=== PATIENT | female | born 1945 | race African-American/Black ===

== ENCOUNTER 2017-02-12 12:15 | Inpatient (IN) ==
[2017-02-12 13:23] LABS: Basophils % 0.1 % (0.0-0.8); Hematocrit 44.5 VOL% (35.7-47.0); Hemoglobin 14.6 GM/DL (12.0-16.0); Immature Granulocytes % 0.5 %; Immature Granulocytes Absolute 0.08 #; Lymphocytes # 1.4 10*3/uL (1.4-4.0); Lymphocytes % 8.7 % (21.3-54.2); Mean Corpuscular HGB Conc 32.8 GM/DL (32-36); Mean Corpuscular Hemoglobin 32 PG (27-34); Monocytes # 1.5 10*3/uL (0.11-0.8); Monocytes % 9.5 % (1.7-12.7); Neutrophils # 12.6 10*3/uL (1.4-7.4); Neutrophils % 81.2 % (38.7-73.9); Platelet Count 183 T/CUMM (130-400); Red Blood Count 4.54 MC/CUMM (3.8-5.5); Red Cell Distribution Width 14.5 % (9.3-17.3); White Blood Count 15.5 T/CUMM (4-12)
[2017-02-12 13:31] LABS: Apearance,Urine CLOUDY (Clear); Bilirubin,Urine Negative (Negative); Blood, Urine Moderate mg/dL (Negative); Glucose,Urine (UA) >=500 mg/dL (Negative); Hyaline Casts,Urine 1 /LPF (0-3); Ketones,Urine Negative (Negative); Mucus,Urine Occasional /LPF (Occasional); Nitrite,Urine Negative (Negative); Protein,Urine 30 MG/DL; RBC,Urine 2 /HPF (0-4); Squamous Epithelial Cell,Urine Occasional /HPF (0-10); Urine Color Yellow (Yellow); Urine Specific Gravity 1.013 (1.001-1.035); Urine Urobilinogen < 2.0 EU/DL (0.2-1.0); WBC,Urine 2 /HPF (0-6)
[2017-02-12] MEDS ORDERED: PROPOFOL 1,000 MG/100 ML BOTTLE IV ONE (13:37)
[2017-02-12] MEDS: PROPOFOL 1,000 MG/100 ML BOTTLE IV SCH ×2 (13:45→21:23)
[2017-02-12 13:46] LABS: Barbiturates Screen,Urine Negative (Negative); Benzodiazepines Screen,Urine Positive (Negative); Cannabinoid Screen,Urine Positive (Negative); Opiate Screen,Urine Negative (Negative); Phencyclidine Screen,Urine Negative (Negative)
[2017-02-12 14:04] LABS: Ammonia 28 UMOL/L (11-32)
[2017-02-12 14:08] LABS: Alanine Aminotransferase 28 U/L (13-56); Albumin 3.9 G/DL (3.4-5.0); Alkaline Phosphatase 90 U/L (45-117); Aspartate Amino Transferase 36 U/L (0-37); Bilirubin,Total < 0.39 MG/DL (0.2-1.0); Blood Urea Nitrogen 14 MG/DL (7-18); Calcium 8.9 MG/DL (8.5-10.1); Glucose 53 MG/DL (74-106); Magnesium 2.3 MG/DL (1.8-2.4); Osmolality,Calculated 280.1 MOS/KG (273-304); Potassium 4.2 MMOL/L (3.5-5.1); Sodium 142 MMOL/L (136-145); Total Protein 7.4 G/DL (6.4-8.3); Troponin I Only 0.248 NG/ML (0.00-0.045)
[2017-02-12] MEDS ORDERED: DEXTROSE 50% 25 GM/50 ML SYRINGE IV ONE (14:32)
[2017-02-12 14:43] LABS: Lactic Acid 2.2 MMOL/L (0.4-2.0)
[2017-02-12] MEDS ORDERED: DEXTROSE 50% 25 GM/50 ML VIAL IV STA (14:53)
[2017-02-12] MEDS ORDERED: ONDANSETRON 4 MG/2 ML VIAL IV PRN (15:34)
[2017-02-12] MEDS ORDERED: ALBUTEROL 2.5 MG/3 ML NEB RESP TX PRN (15:34)
[2017-02-12] MEDS ORDERED: SODIUM CHLORIDE 0.9% 2,200 ML IV ONE (15:34)
[2017-02-12] MEDS ORDERED: PANTOPRAZOLE 40 MG VIAL IV ONE (15:43)
[2017-02-12] MEDS: PANTOPRAZOLE 40 MG VIAL IV SCH (15:45)
[2017-02-12] MEDS ORDERED: VANCOMYCIN 1,000 MG VIAL ONE (15:49)
[2017-02-12] MEDS: VANCOMYCIN INJ 1,000 MG in SODIUM CHLORIDE 0.9% 250 ML IV SCH (16:25)
[2017-02-12 18:34] LABS: CKMB % 0.5 %
[2017-02-12 18:35] LABS: Troponin I Only 0.439 NG/ML (0.00-0.045)
[2017-02-12] MEDS: SODIUM CHLORIDE 0.9% 1,000 ML IV SCH ×2 (19:00→22:47)
[2017-02-13 01:56] LABS: Basophils % 0.2 % (0.0-0.8); Hematocrit 36.9 VOL% (35.7-47.0); Immature Granulocytes % 0.4 %; Immature Granulocytes Absolute 0.05 #; Lymphocytes # 2.4 10*3/uL (1.4-4.0); Lymphocytes % 19.2 % (21.3-54.2); Mean Corpuscular HGB Conc 32.5 GM/DL (32-36); Mean Corpuscular Hemoglobin 32 PG (27-34); Mean Corpuscular Volume 97.4 FL (87-102); Mean Platelet Volume 10.9 FL (9.6-12.0); Monocytes # 1.3 10*3/uL (0.11-0.8); Monocytes % 10.1 % (1.7-12.7); Neutrophils # 8.7 10*3/uL (1.4-7.4); Neutrophils % 70.1 % (38.7-73.9); Platelet Count 158 T/CUMM (130-400); Red Blood Count 3.79 MC/CUMM (3.8-5.5); Red Cell Distribution Width 14.5 % (9.3-17.3); White Blood Count 12.4 T/CUMM (4-12)
[2017-02-13 02:38] LABS: Calcium 7.8 MG/DL (8.5-10.1); Osmolality,Calculated 281.1 MOS/KG (273-304); Potassium 3.9 MMOL/L (3.5-5.1)
[2017-02-13 02:41] LABS: CKMB % 0.3 %
[2017-02-13 02:52] LABS: Troponin I Only 0.279 NG/ML (0.00-0.045)
[2017-02-13] MEDS: PROPOFOL 1,000 MG/100 ML BOTTLE IV SCH ×3 (03:21→17:30)
[2017-02-13 03:43] LABS: ABG Base Excess -0.8 MMOL/L (-2.5-2.5); ABG HCO3 23.8 MMOL/L (20-26); ABG PCO2 30.4 MM HG (35-48); ABG PH 7.466 (7.35-7.45); ABG TCO2 19.1 MMOL/L (23-27); Allen Test Positive; Pt O2 Delivery Device Ventilator
[2017-02-13 04:53] LABS: INR 1.1; PT Patient Result 11.3 SECS; Partial Thromboplastin Time 29.4 SECS (0-40)
[2017-02-13] MEDS: VANCOMYCIN INJ 1,000 MG in SODIUM CHLORIDE 0.9% 250 ML IV SCH ×2 (04:53→17:04)
[2017-02-13] MEDS: SODIUM CHLORIDE 0.9% 1,000 ML IV SCH ×2 (08:43→18:38)
[2017-02-13] MEDS: PANTOPRAZOLE 40 MG VIAL IV SCH (17:03)
[2017-02-14] MEDS ORDERED: TERBUTALINE 1 MG/1 ML VIAL SUBCUT ONE (01:50)
[2017-02-14] MEDS: methylPREDNISolone SOD SUC 40 MG/1 ML VIAL IV SCH ×4 (02:00→21:08)
[2017-02-14] MEDS ORDERED: RACEPINEPHRINE 0.5 ML NEB RESP TX ONE (02:30)
[2017-02-14] MEDS ORDERED: ETOMIDATE 20 MG/10 ML VIAL IV ONE (02:34)
[2017-02-14] MEDS ORDERED: SUCCINYLCHOLINE 200 MG/10 ML VIAL ONE (02:34)
[2017-02-14 02:43] LABS: ABG Base Excess -2.6 MMOL/L (-2.5-2.5); ABG HCO3 22.3 MMOL/L (20-26); ABG Oxygen Saturation 98.6 % (95-100); ABG PCO2 39.1 MM HG (35-48); ABG PH 7.367 (7.35-7.45); ABG TCO2 19.7 MMOL/L (23-27)
[2017-02-14] MEDS ORDERED: ALBUTEROL NEB SOLN 5 MG/ML 20 ML/BOTTLE CONT NEB ONE (03:30)
[2017-02-14 05:14] LABS: Basophils % 0.1 % (0.0-0.8); Hematocrit 37.8 VOL% (35.7-47.0); Hemoglobin 12.4 GM/DL (12.0-16.0); Immature Granulocytes % 0.6 %; Immature Granulocytes Absolute 0.08 #; Lymphocytes # 0.6 10*3/uL (1.4-4.0); Lymphocytes % 4.6 % (21.3-54.2); Mean Corpuscular HGB Conc 32.8 GM/DL (32-36); Mean Corpuscular Hemoglobin 32 PG (27-34); Mean Corpuscular Volume 97.4 FL (87-102); Mean Platelet Volume 11.5 FL (9.6-12.0); Monocytes # 0.5 10*3/uL (0.11-0.8); Monocytes % 3.6 % (1.7-12.7); Neutrophils # 11.4 10*3/uL (1.4-7.4); Neutrophils % 91.1 % (38.7-73.9); Platelet Count 150 T/CUMM (130-400); Red Blood Count 3.88 MC/CUMM (3.8-5.5); Red Cell Distribution Width 14.4 % (9.3-17.3); White Blood Count 12.6 T/CUMM (4-12)
[2017-02-14 05:38] LABS: Calcium 8.5 MG/DL (8.5-10.1); Osmolality,Calculated 287.7 MOS/KG (273-304)
[2017-02-14 05:40] LABS: Band Neutrophils 1 % (0-10); Giant Platelets Few; Hypochromasia 1+; Lymphocytes 5 % (20-55); Platelet Estimate Normal; Segmented Neutrophils 93 % (50-85); Total Cells Counted 100
[2017-02-14] MEDS: SODIUM CHLORIDE 0.9% 1,000 ML IV SCH ×4 (05:40→22:38)
[2017-02-14] MEDS: VANCOMYCIN INJ 1,000 MG in SODIUM CHLORIDE 0.9% 250 ML IV SCH ×2 (05:40→17:02)
[2017-02-14 06:22] LABS: ABG Base Excess -2.7 MMOL/L (-2.5-2.5); ABG HCO3 22.1 MMOL/L (20-26); ABG Oxygen Saturation 97.1 % (95-100); ABG PCO2 37.4 MM HG (35-48); ABG PH 7.378 (7.35-7.45); ABG PO2 85.7 MM HG (80-95); ABG TCO2 19.4 MMOL/L (23-27)
[2017-02-14] MEDS ORDERED: POTASSIUM CHLORIDE RIDER 10 MEQ in PREMIX 1 EACH IV PRN (08:25)
[2017-02-14] MEDS: levETIRAcetam 500 MG TABLET PO SCH ×2 (09:46→21:08)
[2017-02-14] MEDS: POTASSIUM CHLORIDE 20 MEQ/15 ML UDCUP PER TUBE PRN ×4 (10:44→21:08)
[2017-02-14] MEDS: ALBUTEROL 1.25 MG/3 ML NEB RESP TX SCH ×3 (11:34→20:25)
[2017-02-14] MEDS: PROPOFOL 1,000 MG/100 ML BOTTLE IV SCH (15:09)
[2017-02-14] MEDS: PANTOPRAZOLE 40 MG VIAL IV SCH (17:01)
[2017-02-15] MEDS: ALBUTEROL 1.25 MG/3 ML NEB RESP TX SCH ×6 (00:37→22:05)
[2017-02-15] MEDS ORDERED: VANCOMYCIN INJ 1,000 MG in SODIUM CHLORIDE 0.9% 250 ML IV SCH (01:00)
[2017-02-15] MEDS: methylPREDNISolone SOD SUC 40 MG/1 ML VIAL IV SCH ×3 (01:14→18:27)
[2017-02-15] MEDS: SODIUM CHLORIDE 0.9% 1,000 ML IV SCH ×3 (01:28→21:13)
[2017-02-15 04:06] LABS: Basophils % 0.1 % (0.0-0.8); Hematocrit 35.3 VOL% (35.7-47.0); Hemoglobin 11.8 GM/DL (12.0-16.0); Immature Granulocytes % 0.7 %; Immature Granulocytes Absolute 0.11 #; Lymphocytes # 0.9 10*3/uL (1.4-4.0); Lymphocytes % 5.8 % (21.3-54.2); Mean Corpuscular HGB Conc 33.4 GM/DL (32-36); Mean Corpuscular Hemoglobin 32 PG (27-34); Mean Corpuscular Volume 96.4 FL (87-102); Mean Platelet Volume 11.7 FL (9.6-12.0); Monocytes # 0.6 10*3/uL (0.11-0.8); Monocytes % 3.6 % (1.7-12.7); Neutrophils % 89.8 % (38.7-73.9); Platelet Count 153 T/CUMM (130-400); Red Blood Count 3.66 MC/CUMM (3.8-5.5); Red Cell Distribution Width 14.1 % (9.3-17.3); White Blood Count 15.6 T/CUMM (4-12)
[2017-02-15 04:26] LABS: Calcium 9.1 MG/DL (8.5-10.1); Magnesium 2.1 MG/DL (1.8-2.4); Osmolality,Calculated 287.8 MOS/KG (273-304)
[2017-02-15] MEDS: levETIRAcetam 500 MG TABLET PO SCH ×2 (08:40→20:54)
[2017-02-15] MEDS: CEFEPIME 1,000 MG in SYRINGE 1 EACH IV SCH ×2 (08:41→21:12)
[2017-02-15] MEDS ORDERED: CYANOCOBALAMIN 1000 MCG/1 ML VIAL IM SCH (15:16)
[2017-02-15] MEDS ORDERED: hydroCHLOROthiazide 25 MG TABLET PO PRN (15:16)
[2017-02-15] MEDS: FERROUS SULFATE 325 MG TABLET PO SCH ×2 (16:58→20:54)
[2017-02-15] MEDS: lamoTRIgine 25 MG TABLET PO SCH ×2 (16:58→20:54)
[2017-02-15] MEDS: LINACLOTIDE 145 MCG CAPSULE PO SCH (16:59)
[2017-02-15] MEDS: ASCORBIC ACID 500 MG TABLET PO SCH (17:08)
[2017-02-15] MEDS: predniSONE 5 MG TABLET PO SCH (17:09)
[2017-02-15] MEDS: POTASSIUM CHLORIDE 10 MEQ TABLET PO SCH (17:09)
[2017-02-15] MEDS: CHOLECALCIFEROL 1,000 UNIT TABLET PO SCH (17:09)
[2017-02-16] MEDS: ALBUTEROL 1.25 MG/3 ML NEB RESP TX SCH ×6 (02:35→20:25)
[2017-02-16 03:04] LABS: Basophils % 0.1 % (0.0-0.8); Hematocrit 33.9 VOL% (35.7-47.0); Hemoglobin 11.3 GM/DL (12.0-16.0); Immature Granulocytes % 0.9 %; Immature Granulocytes Absolute 0.11 #; Lymphocytes # 2.2 10*3/uL (1.4-4.0); Lymphocytes % 17.5 % (21.3-54.2); Mean Corpuscular HGB Conc 33.3 GM/DL (32-36); Mean Corpuscular Hemoglobin 32 PG (27-34); Mean Corpuscular Volume 96.3 FL (87-102); Mean Platelet Volume 11.6 FL (9.6-12.0); Monocytes # 1.1 10*3/uL (0.11-0.8); Monocytes % 8.5 % (1.7-12.7); Neutrophils # 9.2 10*3/uL (1.4-7.4); Platelet Count 156 T/CUMM (130-400); Red Blood Count 3.52 MC/CUMM (3.8-5.5); Red Cell Distribution Width 14.2 % (9.3-17.3); White Blood Count 12.5 T/CUMM (4-12)
[2017-02-16 03:19] LABS: Albumin 2.8 G/DL (3.4-5.0); Bilirubin,Total 0.4 MG/DL (0.2-1.0); Calcium 8.7 MG/DL (8.5-10.1); Osmolality,Calculated 283.3 MOS/KG (273-304); Potassium 3.6 MMOL/L (3.5-5.1); Total Protein 5.9 G/DL (6.4-8.3)
[2017-02-16] MEDS: SODIUM CHLORIDE 0.9% 1,000 ML IV SCH (09:42)
[2017-02-16] MEDS: CHOLECALCIFEROL 1,000 UNIT TABLET PO SCH (09:43)
[2017-02-16] MEDS: levETIRAcetam 500 MG TABLET PO SCH ×2 (09:43→21:44)
[2017-02-16] MEDS: LINACLOTIDE 145 MCG CAPSULE PO SCH (09:43)
[2017-02-16] MEDS: predniSONE 5 MG TABLET PO SCH (09:44)
[2017-02-16] MEDS: CEFEPIME 1,000 MG in SYRINGE 1 EACH IV SCH ×2 (09:44→21:43)
[2017-02-16] MEDS: POTASSIUM CHLORIDE 10 MEQ TABLET PO SCH (09:44)
[2017-02-16] MEDS: ASCORBIC ACID 500 MG TABLET PO SCH (09:44)
[2017-02-16] MEDS: lamoTRIgine 25 MG TABLET PO SCH ×2 (09:44→21:43)
[2017-02-16] MEDS: FERROUS SULFATE 325 MG TABLET PO SCH ×2 (09:44→21:43)
[2017-02-17] MEDS: ALBUTEROL 1.25 MG/3 ML NEB RESP TX SCH ×4 (02:12→11:50)
[2017-02-17 04:18] LABS: Basophils % 0.1 % (0.0-0.8); Immature Granulocytes % 1.1 %; Immature Granulocytes Absolute 0.09 #; Lymphocytes # 2.5 10*3/uL (1.4-4.0); Lymphocytes % 31.3 % (21.3-54.2); Mean Corpuscular HGB Conc 34.2 GM/DL (32-36); Mean Corpuscular Hemoglobin 32 PG (27-34); Mean Corpuscular Volume 93.4 FL (87-102); Mean Platelet Volume 11.5 FL (9.6-12.0); Monocytes # 0.8 10*3/uL (0.11-0.8); Monocytes % 10.6 % (1.7-12.7); NRBC # 0.02 10*3/uL; Neutrophils # 4.5 10*3/uL (1.4-7.4); Neutrophils % 56.9 % (38.7-73.9); Platelet Count 151 T/CUMM (130-400); Red Blood Count 4.07 MC/CUMM (3.8-5.5); Red Cell Distribution Width 13.9 % (9.3-17.3); White Blood Count 7.8 T/CUMM (4-12)
[2017-02-17 04:52] LABS: Calcium 8.5 MG/DL (8.5-10.1); Osmolality,Calculated 285.8 MOS/KG (273-304); Potassium 3.4 MMOL/L (3.5-5.1)
[2017-02-17] MEDS: ASCORBIC ACID 500 MG TABLET PO SCH (09:08)
[2017-02-17] MEDS: FERROUS SULFATE 325 MG TABLET PO SCH (09:08)
[2017-02-17] MEDS: POTASSIUM CHLORIDE 10 MEQ TABLET PO SCH (09:08)
[2017-02-17] MEDS: CEFEPIME 1,000 MG in SYRINGE 1 EACH IV SCH (09:09)
[2017-02-17] MEDS: levETIRAcetam 500 MG TABLET PO SCH (09:09)
[2017-02-17] MEDS: predniSONE 5 MG TABLET PO SCH (09:09)
[2017-02-17] MEDS: LINACLOTIDE 145 MCG CAPSULE PO SCH (09:13)
[2017-02-17] MEDS: CHOLECALCIFEROL 1,000 UNIT TABLET PO SCH (09:13)
[2017-02-17] MEDS: lamoTRIgine 25 MG TABLET PO SCH (09:13)
[2017-02-17] MEDS ORDERED: POTASSIUM CHLORIDE 20 MEQ TABLET PO ONE (09:55)
[2017-02-17] MEDS ORDERED: CEFUROXIME 500 MG TABLET PO SCH (10:00)
[2017-02-17] MEDS ORDERED: AZITHROMYCIN 250 MG TABLET PO SCH (10:00)
[2017-02-17 14:24] VITALS: BP 122/74
== END 2017-02-17 13:00 | disposition home or self-care (01) | DRG 64 ==
LOC: N.ED 12:15 → SUATTDRO 13:39 → N.EDINP 13:39 → N.CC 17:10 → N.2E 02-15 13:27
PROVIDERS: ADMIT Internal Medicine; ATTEND Hospitalist